=== PATIENT | female | born 1970 | race Caucasian/White ===

== ENCOUNTER 2020-11-14 06:43 | Day surgery (SDC) | payer BC, SELFPAY ==
[2020-11-07 13:40] VITALS: BMI 27.7
--- NOTE | 2020-11-13 09:18 | HO.ANESPROP2 ---
Documented by User: Tori Llanes 11/13/20 09:20 HPI - Anesthesia Eval Consult details Narrative: 50yo F for Colonoscopy [facility] Past Medical History Medical History H/O cold sores Hyperhidrosis Surgical History Surgical History History of repair of anterior cruciate ligament of right knee Hx of tonsillectomy Social History Social History Smoking Status: Unknown if ever smoked Use of substances other than those prescribed or required for medical reasons: No Advance Directives: No Advance Directives Information Provided: No Advance Directives on File: No Recently lost weight without trying: No Meds Allergies Allergy/AdvReac Type Severity Reaction Status Date / Time No Known Allergies Allergy Verified 11/07/20 13:35 Home Medications Medication Instructions Recorded Confirmed Type multivitamin 1 tab PO DAILY 11/07/20 11/07/20 History valacyclovir 1 tab PO Q12H PRN 11/07/20 11/07/20 History Exam Exam Date and Time: November 13, 2020 0918 Height,Weight and Vital Signs: Height 5 ft 7 in Weight 80.286 kg Assessment and Plan Assessment Anesthesia Assessment: Chart Reviewed Documented by User: Jasmin Flowers 11/14/20 07:28 [facility] Past Medical History Medical History H/O cold sores Hyperhidrosis Surgical History Surgical History History of repair of anterior cruciate ligament of right knee Hx of tonsillectomy Social History Social History Smoking Status: Unknown if ever smoked Use of substances other than those prescribed or required for medical reasons: No Advance Directives: No Advance Directives Information Provided: No Advance Directives on File: No Recently lost weight without trying: No Meds Allergies Allergy/AdvReac Type Severity Reaction Status Date / Time No Known Allergies Allergy Verified 11/07/20 13:35 Home Medications Medication Instructions Recorded Confirmed Type multivitamin 1 tab PO DAILY 11/07/20 11/07/20 History valacyclovir 1 tab PO Q12H PRN 11/07/20 11/07/20 History Exam Airway Mallampati Class: II (Slightly receding chin) TM Dist: <=3cm Neck ROM: Full Loose/Missing/Broken Teeth: No Heart: RRR Lungs: CTA Assessment and Plan Assessment Anesthesia Assessment: Anesthesia Plan Discussed and Chart Reviewed Final Anesthetic Review NPO: Yes ASA Class: I Final Preanesthetic Review: Meds/Allgs Chart Reviewed, Consent Obtained/Reviewed and Anes Risks/Benef Reviewed Patient Risk: Low Procedure Risk: Low Anesthetic Plan Anesthetic Plan: MAC: Disposition: Standard PACU
[2020-11-14 06:56] VITALS: BP 103/67; PULSE 69; RESP 16; TEMP 36.4; O2SAT 96
[2020-11-14] MEDS: Lactated Ringers 1,000 ML 100 ML IVCONT (07:05)
--- NOTE | 2020-11-14 07:26 | MHC.SHP ---
Pre-Procedural Eval Section B Chief Complaint: screening Details of Present Illness: screening Relevant Family History (Specify if Yes): No Relevant Social History: None Present Medications: see Short Stay Collaborative assessment Medical History: No relevant PMH History of Previous Operations: No relevant previous surgery Allergies: Allergies Allergy/AdvReac Type Severity Reaction Status Date / Time No Known Allergies Allergy Verified 11/07/20 13:35 Review of Systems Sugical H&P ROS: Negative: Constitution, Cardiovascular, Respiratory, Neurological, Psychiatric, Hem-Onc, Allergic/Immunologic, Gastrointestinal, Genitourinary, Musculoskeletal, Integumentary, Endocrine and Eyes/Ears/Nose/Throat Exam Surgical H&P Exam: Normal: HEENT, Normal: Heart, Normal: Lungs, Normal: Extremities, Normal: Abdomen, Normal: Skin and Normal: Neurological Plan Diagnosis/Plan: Unchanged I have reviewed the history and physical and performed a pertinent physical examination on my patient. No changes have occurred unless specified.
[2020-11-14 07:56] VITALS: BP 89/49; PULSE 75; RESP 14; TEMP 36.8; O2SAT 96
--- NOTE | 2020-11-14 07:57 | PM.OP ---
Brief Operative Note Date of Service: 11/14/20 Pre-op diagnosis: screening Post-op diagnosis: same (colon polyp) Procedure: colonoscopy Surgeon: Carroll Evans Anesthesia: MAC Estimated blood loss (mL): 0 Pathology: other (polyp 20 cm) Condition: stable Disposition: PACU
--- NOTE | 2020-11-14 08:06 | OP_ITS ---
SURGEON: Carroll Evans MD PREOPERATIVE DIAGNOSIS: POSTOPERATIVE DIAGNOSIS: PROCEDURE PERFORMED: ESTIMATED BLOOD LOSS: COMPLICATIONS: ANESTHESIA: ASSISTANTS: SPECIMENS: PROCEDURE: Colonoscopy to the terminal ileum with snare polypectomy. INDICATION: Colon cancer screening. MEDICATIONS: Monitored anesthesia care. DESCRIPTION OF PROCEDURE: History and physical performed. The risks and benefits of the procedure were explained to the patient. Informed consent was obtained. The patient was placed in the left lateral decubitus position. A digital rectal exam was performed and was found to be normal. The Olympus pediatric video colonoscope was introduced into the rectum and advanced to the cecum without difficulty. The cecum was identified by transillumination, palpation, and identification of ileocecal valve. Examination was performed. The scope was removed. She tolerated the procedure well, was taken to recovery area in stable condition. FINDINGS: The terminal ileum was normal. The visualized colonic mucosa was normal. The quality of the prep was excellent. There was a single polyp measuring 7 mm at 20 cm from the anal verge. This was removed with a snare and recovered via suction. No other polyps were identified. Retroflexed examination showed hypertrophic anal papillae and small internal hemorrhoids. IMPRESSION: Colon polyp. RECOMMENDATION: Follow up the biopsy results. MD MELISSA Tinajero/CHELY / [id number]
[2020-11-14 08:10] VITALS: BP 94/54; PULSE 65; RESP 13; TEMP 36.8; O2SAT 95
--- NOTE | 2020-11-14 08:45 | HO.POSTANES ---
Post Anesthesia Evaluation Post Anesthesia Evaluation Vital Signs: Vital Signs Temp Pulse Resp BP Pulse Ox 11/14/20 08:10 98.3 F 65 13 94/54 L 95 11/14/20 07:56 98.3 F 75 14 89/49 L 96 11/14/20 06:56 97.6 F 69 16 103/67 96 Anesthesia: Monitored Mental Status: Awake Pain Control: Satisfactory Nausea/Vomiting: None Hydration: Adequate Anesthesia-Related Issues: No Anes. Related Issues
== END 2020-11-14 08:50 | disposition home or self-care (01) ==
PROVIDERS: PCP Family Medicine; Visit Provider Internal Medicine Gastroenterology
PROC: 0DJD8ZZ Inspection of Lower Intestinal Tract, Via Natural or Artificial Opening Endoscopic (ICD-10-PCS; CPT 45378; principal; 2020-11-14 07:30)
DX: Z12.11 Encounter for screening for malignant neoplasm of colon (principal); D12.5 Benign neoplasm of sigmoid colon; K62.89 Other specified diseases of anus and rectum; K64.8 Other hemorrhoids
CPT/HCPCS: 45385; 88305